=== PATIENT | male | born 1960 | race Caucasian/White ===

== ENCOUNTER 2017-03-08 13:31 | Emergency (ER) | payer BC, OTHER ==
[~2017-03-08] VITALS: Ht 172.7 cm; Wt 130.5 kg
[~2017-03-08 13:31] MED LIST: ALLOPURINOL300 MG PO; ASPIRIN81 M2 PO; BACLOFEN10 MG PO; CADUET 5/401 TABLET PO; DIOVAN160 MG PO; FLEXERIL10 MG PO; FLOMAX0.4 MG PO; FUROSEMIDE20 MG PO; GLIMEPIRIDE1 MG PO; HYDROCHLOROTHIA25 MG PO; LEXAPRO10 MG PO; METFORMIN HCL1000 MG PO; NOHOMEMEDS; PERCOCET 5/31 TABLET PO; PRILOSEC40 MG PO; VICODIN 5-3001 EACH PO; VICODIN,LORT1 TABLET PO; ZOFRAN ODT4 MG PO; ZOFRAN4 MG PO
[2017-03-08 15:49] LABS: HEMATOCRIT 47.1 % (38.0-50.0); MCH 27.7 PG (29.0-34.0); MCHC 33.5 G/DL (30.0-36.0); MCV 82.5 FL (86-99); MEAN PLAT.VOLUME 10.1 uM^3 (9.0-12.4); PLATELET COUNT 280 K/uL (156-360); RBC DIS.WIDTH-CV 13.1 % (11.8-14.6); RBC DIS.WIDTH-SD 38.9 % (39-53); RED BLOOD COUNT 5.71 M/uL (4.00-5.50); WHITE BLOOD COUNT 8.1 K/uL (4.1-10.2)
[2017-03-08 15:57] LABS: CHLORIDE 102 mEq/L (99-109); POTASSIUM 3.4 mEq/L (3.7-5.4); SODIUM 138 mEq/L (136-147)
[2017-03-08 15:59] LABS: GLUCOSE 212 mg/dL (70-99)
[2017-03-08 16:01] LABS: ANION GAP 14 MEQ/L (2-14)
[2017-03-08 16:03] LABS: GFR ESTIMATE (CALCULATED) > 59 mL/min/
[2017-03-08 16:04] LABS: UREA NITROGEN (BUN) 14 mg/dL (9-23)
[2017-03-08] MEDS ORDERED: FIORICET,ESG1 TABLET PO (16:27)
[2017-03-08 16:47] VITALS: BP 140/69
== END 2017-03-08 16:53 | disposition home or self-care (01) ==
LOC: EME 13:31 → EXP 13:31
PROVIDERS: Nurse Practitioner Family
DX: G43.909 Migraine, unspecified, not intractable, without status migrainosus (principal); E11.9 Type 2 diabetes mellitus without complications; E78.5 Hyperlipidemia, unspecified; I10 Essential (primary) hypertension; Z87.442 Personal history of urinary calculi; Z87.891 Personal history of nicotine dependence
CPT/HCPCS: 70450; 70460; 80048; 85027; 99281; 99285; J1200; J2765; J7030